=== PATIENT | female | born 1970 | race Caucasian/White ===

== ENCOUNTER 2017-04-24 19:54 | Emergency (ER) | payer MEDICARE, MEDICAID ==
[~2017-04-24] VITALS: Ht 170.2 cm; Wt 99.6 kg
[~2017-04-24 19:54] MED LIST: ADVIL200 MG OR; AUGMENTIN875 MG OR; AUGMENTIN875TAB PO; AVELOX400 MG OR; BACTRIM DS1 TAB PO; CARBAMAZEPIN200 MG PO; CELEXA10 MG OR; CLONAZEP ODT1 MG OR; CRESTOR10 MG OR; DIFLUCAN150 MG OR; KEFLEX500 MG OR; KEPPRA750 M2 PO; KEPPRA750 MG OR; LEVOTHYROXIN75 MCG PO; LORTAB 5 OR; LORTAB 7.57.5 MG PO; LORTAB5 OR; LORTAB5 PO; MEDDOSEPAK OR; MOTRIN800 MG PO; PHENAZOPYRID100 MG PO; PHENOBARB60 MG OR; PHENOBARB60 MG PO; PYRIDIUM200 MG PO; ROBITUSSIN AC10 ML OR; SYNTHROID75 MCG OR; TEGRETOL XR400 MG OR; TEGRETOL200 MG OR; TESSALON200 MG OR; ULTRAM50 MG OR; VENTOLIN HFA IN; [UNRECOGNIZED DRUG - OTHER]
[2017-04-24] MEDS ORDERED: LEVOTHYROXIN112 MC1 PO (20:12)
[2017-04-24] MEDS ORDERED: CARBAMAZEPIN200 MG PO (20:14)
[2017-04-24] MEDS ORDERED: PERCOCET 5/325M1 TAB PO (20:37)
[2017-04-24 20:45] LABS: HEMATOCRIT 42.4 % (37.0-47.0); HEMOGLOBIN 13.8 g/dl (12.0-16.0); IMMATURE GRANULOCYTES 0.5 % (0.0-1.0); MEAN CELL VOLUME 94.6 fL CALC (80.0-100.0); MEAN CORPUSCULAR HGB 30.8 pG CALC (26.0-32.0); MEAN CORPUSCULAR HGB CONC 32.5 g/L CALC (32.0-36.0); NEUT# 10.43 thou/uL (2.00-7.15); RED BLOOD COUNT 4.48 mill/uL (4.20-5.60); RED CELL DISTRI WIDTH 13.2 % (11.5-15.5); URINE BLOOD DIPSTICK TRACE-LYSED (NEGATIVE); URINE CLARITY CLEAR; URINE COLOR YELLOW; URINE GLUCOSE - DIPSTICK NEGATIVE (NEGATIVE); URINE KETONE 15 mg/dL (NEGATIVE); URINE LEUK ESTERASE NEGATIVE (NEGATIVE); URINE NITRITE - DIPSTICK NEGATIVE (Negative); URINE PH 5.5 (4.5-8.0); URINE PROTEIN - DIPSTICK TRACE mg/dL (NEG-TRACE)
[2017-04-24 20:46] LABS: URINE BILIRUBIN - DIPSTICK MODERATE (NEGATIVE)
[2017-04-24 21:00] LABS: ALBUMIN 4.9 g/dL (3.2-5.0); ALKALINE PHOSPHATASE 150 u/l (38-126); AMYLASE 35 u/l (30-110); ANION GAP 20 (6-22 (CALC)); BILIRUBIN, TOTAL 1.5 mg/dL (0.0-1.4); BUN 11 mg/dL (7-17); BUN/CREATININE RATIO 15 (12-20 (CALC)); CALCIUM 10.6 mg/dL (8.4-10.2); CARBON DIOXIDE 27 mmol/l (22-30); CHLORIDE 102 mmol/l (95-108); CREATININE 0.8 mg/dL (0.5-1.0); GFR > 60 ML/MIN (>=60 (CALC)); GFR FOR AFR.AMER. > 60 ML/MIN (>=60 (CALC)); GLUCOSE 99 mg/dL (65-105); LIPASE 79 u/l (23-300); POTASSIUM 4.1 mmol/l (3.5-5.1); SGOT/AST 109 u/l (14-36); SGPT/ALT 116 u/l (9-52); SODIUM 145 mmol/l (137-146); TOTAL PROTEIN 7.9 g/dL (6.3-8.2)
[2017-04-24 21:50] VITALS: BP 120/68
== END 2017-04-24 21:49 | disposition other institution (70) ==
LOC: ED 19:54
PROVIDERS: Emergency Medicine
DX: G89.18 Other acute postprocedural pain (principal); Z98.890 Other specified postprocedural states; R11.2 Nausea with vomiting, unspecified

== ENCOUNTER 2017-07-09 18:46 | Emergency (ER) | payer OTHER, MEDICARE, MEDICAID ==
[~2017-07-09] VITALS: Ht 170.2 cm; Wt 85.0 kg
[~2017-07-09 18:46] MED LIST changes: +LEVOTHYROXIN112 MC1 PO; +PERCOCET 5/325M1 TAB PO
[2017-07-09 20:36] LABS: URINE BILIRUBIN - DIPSTICK NEGATIVE (NEGATIVE); URINE BLOOD DIPSTICK NEGATIVE (NEGATIVE); URINE COLOR YELLOW; URINE GLUCOSE - DIPSTICK NEGATIVE (NEGATIVE); URINE KETONE NEGATIVE (NEGATIVE); URINE LEUK ESTERASE NEGATIVE (NEGATIVE); URINE NITRITE - DIPSTICK NEGATIVE (Negative); URINE PH 5.5 (4.5-8.0); URINE PROTEIN - DIPSTICK NEGATIVE (NEG-TRACE); URINE UROBILINOGEN - DIPSTICK 0.2 E.U./dL (0.2)
[2017-07-09 21:12] LABS: URINE CLARITY CLEAR
[2017-07-09] MEDS ORDERED: ULTRAM50 M1 PO (21:52)
[2017-07-09] MEDS ORDERED: FLEXERIL PO (21:53)
[2017-07-09 22:16] VITALS: BP 119/74
== END 2017-07-09 22:17 | disposition home or self-care (01) | DRG 552 ==
LOC: ED 18:46
PROVIDERS: Emergency Medicine
DX: S16.1XXA Strain of muscle, fascia and tendon at neck level, initial encounter (principal); M25.522 Pain in left elbow; M54.9 Dorsalgia, unspecified; S53.402A Unspecified sprain of left elbow, initial encounter; V43.52XA Car driver injured in collision with other type car in traffic accident, initial encounter; Y92.414 Local residential or business street as the place of occurrence of the external cause; Y93.89 Activity, other specified

== ENCOUNTER 2019-02-02 18:39 | Emergency (ER) | payer MEDICARE, MEDICAID ==
[~2019-02-02] VITALS: Ht 170.2 cm; Wt 87.0 kg
[~2019-02-02 18:39] MED LIST changes: +FLEXERIL PO; +ULTRAM50 M1 PO
[2019-02-02 20:31] VITALS: BP 124/81
== END 2019-02-02 20:31 | disposition home or self-care (01) ==
LOC: ED 18:39
PROC: 2W3JX1Z Immobilization of Right Finger using Splint (ICD-10-PCS; principal; 2019-02-02)
DX: S62.634A Displaced fracture of distal phalanx of right ring finger, initial encounter for closed fracture (principal); G40.909 Epilepsy, unspecified, not intractable, without status epilepticus; W01.0XXA Fall on same level from slipping, tripping and stumbling without subsequent striking against object, initial encounter

== ENCOUNTER 2019-07-18 | Emergency (ER) | payer MEDICARE, OTHER ==
[2019-07-18] MEDS ORDERED: AUGMENTIN500TAB PO (21:18)
== END 2019-07-18 21:44 | disposition home or self-care (01) ==
DX: S80.872A Other superficial bite, left lower leg, initial encounter (principal); S90.571A Other superficial bite of ankle, right ankle, initial encounter; W54.0XXA Bitten by dog, initial encounter

== ENCOUNTER 2022-11-10 18:56 | Emergency (ER) | payer MEDICARE, MEDICAID ==
[2022-11-10] VITALS (10 sets, daily range): BP systolic 111–133; BP diastolic 52–90
[~2022-11-10] VITALS: Ht 170.2 cm; Wt 86.0 kg
[~2022-11-10 18:56] MED LIST changes: +AUGMENTIN500TAB PO
[2022-11-10] MEDS ORDERED: XTAMPZA ER27 MG (19:29)
[2022-11-10] MEDS ORDERED: OXYCODONE15 MG PO (19:30)
[2022-11-10] MEDS ORDERED: TOPROL XL50 MG PO (19:30)
[2022-11-10] MEDS ORDERED: PRAVASTATIN40 MG PO (19:31)
[2022-11-10] MEDS ORDERED: FAMOTIDINE20 M1 PO (19:31)
== END 2022-11-10 23:20 | disposition left against medical advice (07) ==
LOC: ED 18:56
DX: S80.11XA Contusion of right lower leg, initial encounter (principal); I10 Essential (primary) hypertension; G40.909 Epilepsy, unspecified, not intractable, without status epilepticus; W13.3XXA Fall through floor, initial encounter; Y92.008 Other place in unspecified non-institutional (private) residence as the place of occurrence of the external cause; Z53.29 Procedure and treatment not carried out because of patient's decision for other reasons; Z88.8 Allergy status to other drugs, medicaments and biological substances; Z87.891 Personal history of nicotine dependence; Z79.891 Long term (current) use of opiate analgesic